=== PATIENT | female | born 1985 | race Caucasian/White ===

== ENCOUNTER 2018-01-21 15:13 | Emergency (ER) | payer MEDICAID ==
[~2018-01-21] VITALS: Ht 170.2 cm; Wt 122.7 kg
[~2018-01-21 15:13] MED LIST: ADIPEX-P37.5 MG PO; ADVIL200 MG PO; HYDROCODONE-APA1 TAB PO; PROTONIX40 MG PO; PROZAC20 MG PO; ZANAFLEX4 MG PO
[2018-01-21 15:16] VITALS: Ht 170.2 cm; Wt 122.7 kg
[2018-01-21] MEDS ORDERED: EC-NAPROSYN500 MG PO (16:59)
[2018-01-21 17:18] VITALS: BP 124/84
== END 2018-01-21 17:15 | disposition home or self-care (01) ==
LOC: D.ER 15:13
DX: S83.91XA Sprain of unspecified site of right knee, initial encounter (principal); W18.30XA Fall on same level, unspecified, initial encounter; Y93.89 Activity, other specified; Y92.89 Other specified places as the place of occurrence of the external cause; Z86.19 Personal history of other infectious and parasitic diseases; F17.200 Nicotine dependence, unspecified, uncomplicated